=== PATIENT | male | born 1990 | race African-American/Black ===

== ENCOUNTER 2020-05-19 03:52 | Inpatient (IN) | payer BC ==
[~2020-05-19] VITALS: Ht 188 cm; Wt 91.6 kg
[2020-05-19 03:53] VITALS: BP 128/85
[2020-05-19] MEDS ORDERED: PROAIR HFA8.5 GM INH (03:59)
[2020-05-19] MEDS ORDERED: ADVAIR 250-501 EACH INH (04:00)
[2020-05-19] MEDS ORDERED: SOLU-MEDRO1000 MG/VI (04:00)
[2020-05-19 04:48] LABS: ABSOLUTE NEUTROPHILS 5.3 thou/uL (1.4-8.2); BASOPHILS 0.3 % (0.0-2.0); EOSINOPHILS 1.9 % (0.0-3.0); HEMATOCRIT 42.8 % (42.0-52.0); HEMOGLOBIN 14.3 gm/dL (14.0-18.0); LYMPHOCYTES 12.1 % (24.0-44.0); MCH 33.1 pg (26.0-34.0); MCHC 33.4 g/dL (28.0-37.0); MCV 99.2 fL (80.0-100.0); PLATELET COUNT 199 thou/uL (150-400); POLYS 78.7 % (36.0-66.0); RBC 4.32 mil/uL (4.50-6.00); RDW 13.1 % (10.5-14.5); WBC 6.7 thou/uL (4.0-11.0)
[2020-05-19 05:06] LABS: ANION GAP 12 mmol/L (7-16); BUN 12 mg/dL (7-18); CALCIUM 8.5 mg/dL (8.5-10.1); CHLORIDE 102 mmol/L (98-107); CO2 24 mmol/L (21-32); CREATININE 1.1 mg/dL (0.7-1.3); GLUCOSE 84 mg/dL (74-106); POTASSIUM 3.6 mmol/L (3.5-5.1); SODIUM 138 mmol/L (136-145)
[2020-05-19 05:07] LABS: ALBUMIN 4.1 g/dL (3.4-5.0); MAGNESIUM 1.7 mg/dL (1.8-2.4); SGOT 21 U/L (15-37); SGPT 22 U/L (30-65); TOTAL BILIRUBIN 0.3 mg/dL (0.2-1.0); TOTAL PROTEIN 7.6 g/dL (6.4-8.2); TROPONIN-I <0.06 ng/mL (<0.06)
--- NOTE | 2020-05-19 05:17 | NUR ---
UNABLE TO GET EKG DUE AEROSOLIZED PROCEDURE (BREATHING TREATMENT). DR LANZA AWARE.
[2020-05-19 06:29] VITALS: BP 147/82
--- NOTE | 2020-05-19 06:32 | NUR ---
TRIED TO CALL REPORT. NO ANSWER.
[2020-05-19 07:10] VITALS: BP 136/77
[2020-05-19 09:27] LABS: HCO3 21.8 mmol/L (22.0-26.0); PCO2 34.5 mmHg (35.0-45.0); PO2 66.9 mmHg (80.0-100.0); pH 7.418 (7.360-7.450); sO2 93.8 % (92.0-98.0)
[2020-05-19 11:07] VITALS: BP 150/80
[2020-05-19 17:06] VITALS: BP 149/81
--- NOTE | 2020-05-19 18:30 | NUR ---
PT ADMITTED FROM ER ABOUT 0730AM, PT IS A&OX3, PT STARTS IV FLUID ,BREATHING TREATMENT, AND IV METHYLPREDNISOLONE , PT'S SOB HAS IMPROVED, BUT PT HAS STILL HAVE SOB WITH ACYIVITIES, PT DENIES PAIN AT THIS TIME.
--- NOTE | 2020-05-19 18:36 | NUR ---
PT'S FIRST TEST IS NEGATIVE FROM 05/19/20 0451AM COVID TEST, BUT PT STILL HAS SOB AND COUGHING , PT HAS SECOND COVID TEST AT 1430PM PER DR ORDER, PT IS REMANIN ENHANCED PROCAUTION.
[2020-05-19 21:02] VITALS: BP 147/72
[2020-05-20 05:05] VITALS: BP 145/77
--- NOTE | 2020-05-20 06:14 | NUR ---
Pt. slept some. Tolerating room air well though verbalized intermittent shortness of breath with exertion. Afebrile. COVID test came back negative. Verbalized breathing tx helps. Still has non productive cough. Making progress towards care plan goals.
--- NOTE | 2020-05-20 08:06 | NUR ---
RN HAD DONE PT'S ADMISSION SYSTEMS ASSESSMENT IN [facility] FOR 4 TIMES, BUT THE COMPUTER CAN NOT SAVE AND FILE THE ADMISSION SYSTEMS ASSESSMENT , RN HAD REPORTED TO CHARGE NURSE.
[2020-05-20 09:15] VITALS: BP 130/81
--- NOTE | 2020-05-20 10:35 | NUR ---
PT OK TO BE TAKEN OFF OF ISOLATION AND COVID PRECAUTIONS PER DR. WONG
--- NOTE | 2020-05-20 10:36 | NUR ---
PT CARE ASSUMED AT 0700. CHANGED TO MEDSURG STATUS. OK TO REMOVE TELEMETRY PER DR. MEMBRENO. PT EDUCATED ABOUT THE FLU SHOT. EDUCATION GIVEN ABOUT CARE AND GOALS FOR HIS STAY. ACHS WITH NO COVERAGE NEEDED. ISOLATION REMOVED PER DR. WONG WITH TWO NEGATIVE COVID RESULTS. COPY GIVEN TO PT FOR EMPLOYER. PT USES URINAL. NO EDEMA. PT STILL HAS A DRY COUGH BUT STATES "HE FEELS MUCH BETTER AND IS NOT SHORT OF BREAETH ANYMORE" IV IS PATENT WITH NO REDNESS OR EDEMA, FLUIDS INFUSING. PT INDEPENDENT IN THE ROOM. WILL CONTINUE TO MONITOR.
--- NOTE | 2020-05-20 16:00 | NUR ---
ASSUMED CARE OF THE PT AT 1515. PT IS AMBULATORY. AC/HS BS CHECKS FOR PREDNISONE, SEE EMAR. COVID R/O X2. NO C/O PAIN. LUNGS CLEAR. R AC DRY AND INTACT. PT HAS GIRLFRIEND ON VISITOR LIST. BED IN THE LOWEST POSITION, BED/CHAIR LOCKED, CALL LIGHT IS WITHIN REACH. WILL CONTINUE TO MONITOR THE PT.
[2020-05-20 20:10] VITALS: BP 138/81
--- NOTE | 2020-05-21 03:21 | NUR ---
PT WAS OBSERVED SITTING UP IN THE RECLINER IN HIS ROOM AFTER GETTING OUT OF THE SHOWER AT START OF SHIFT.PT LATER C/O DIZZINESS THAT LATER WENT AWAY AFTER HE ATE SOME FOOD THAT WAS DELIVERED TO HIM BY HIS FAMILY AT SHIFT CHANGE. BG MONITORED,WAS STABLE.PT STILL COUGHING,PT STATED HE IS COUGHING THINGS UP,THIS NURSE DID NOT OBSERVE IT.PT STILL WHEEZEING,CONT WITH RT TX.UP ADLIB IN ROOM.PT SO EAGER TO DC TODAY SO THAT HE CAN GO BACK TO WORK ON FRIDAY.PT PROGRESSING SLOWLY TOWARDS DC GOALS.CALL DEMOND FRAGOSO.
[2020-05-21 04:10] VITALS: BP 155/85
[2020-05-21 07:48] VITALS: BP 152/82
[2020-05-21] MEDS ORDERED: FLONASE 0.05%50 MCG NASAL (10:47)
[2020-05-21] MEDS ORDERED: MUCINEX600 MG PO (10:47)
[2020-05-21] MEDS ORDERED: NASALCROM26 ML NASAL (10:47)
[2020-05-21] MEDS ORDERED: ALBUTEROL2.5 MG/0.5 INH (10:50)
[2020-05-21] MEDS ORDERED: PREDNISONE 5 MG5 M1 PO (10:52)
[2020-05-21 14:20] VITALS: BP 152/82
--- NOTE | 2020-05-21 20:54 | NUR ---
ASSUMED PT CARE AT 0700. PT A X O X4. PT UP AD JB. ON ROOM AIR. IV RT AC AND SALINE LOCKED.LBM ON 05/20/20. ACHS. HEART HEALTHY DIET. WILL CALL FOR HELP. DISCHARGED HOME.
--- NOTE | 2020-05-22 07:30 | EKG ---
[facility] [place] [address] ELECTROCARDIOGRAM REPORT Name: MARTHA BURNS Room #: 437-P [facility] IN M.R.#: [id number] Admission: 05/19/20 Attend Phys: Rik Umberto Mikel Discharge: 05/21/20 Date of : 88 Report #: [id number] THIS REPORT FOR: cc: FAM - Family physician unknown FAM - Family physician unknown Rudy Marie MD [facility] ~ THIS REPORT FOR: //name// [facility] Test Date: 2020-05-19 Test Time: 06:06:26 Pat Name: MARTHA BURNS Department: Room: [facility] Gender: M Panelbeater: : 1990 Requested By: Andre Rashid Order Number: [id number] MD: Rudy Marie Measurements Intervals [place] Rate: 112 P: 50 NM: 133 QRS: 71 QRSD: 91 T: 44 QT: 309 QTc: 422 Interpretive Statements Sinus tachycardia ST elev, probable normal early repol pattern No previous ECG available for comparison Electronically Signed On 05-22-2020 7:30:34 CDT by Rudy Marie [email or web address] <ELECTRONICALLY SIGNED> By: Rudy Marie MD, FAC 05/22/20 0730 5 5 Rudy Marie MD, [facility] /EPI
== END 2020-05-21 15:25 | disposition home or self-care (01) | DRG 202 ==
LOC: ER 03:52 → EROBS 06:10 → 3W 07:38 → 4S 05-20 15:21
PROVIDERS: Emergency Medicine; Internal Medicine; ADMIT Hospitalist; ATTEND Hospitalist
DX: J45.902 Unspecified asthma with status asthmaticus (principal); J96.01 Acute respiratory failure with hypoxia; F17.210 Nicotine dependence, cigarettes, uncomplicated; Z20.828 Contact with and (suspected) exposure to other viral communicable diseases; Z79.899 Other long term (current) drug therapy; Z72.89 Other problems related to lifestyle
CPT/HCPCS: 10102; 10879